=== PATIENT | male | born 1945 | race Caucasian/White ===

== ENCOUNTER → 2021-03-03 | Outpatient (CLI) | payer OTHER ==
[~2021-03-03] MED LIST: AMLO-211 PO; LEVO125T5 PO
[2021-03-03 09:56] LABS: MICROSCOPIC NOT IND
[2021-03-03 09:58] LABS: BASOPHILS % (AUTO) 1 % (0-1); EOSINOPHILS % (AUTO) 2 % (1-7); LYMPHOCYTES % (AUTO) 30 % (22-44); MEAN CORPUSCULAR HEMOGLOBIN 35.8 pg (27.5-34.5); MEAN CORPUSCULAR HGB CONC 34.3 g/dL (33.2-36.2); MEAN PLATELET VOLUME 8.5 fL (7.4-10.4); MONOCYTES % (AUTO) 11 % (2-9); NEUTROPHILS % (AUTO) 57 % (42-75); PLATELET COUNT 243 x10^3/uL (130-400); RED BLOOD COUNT 4.56 x10^6/uL (4.38-5.82); RED CELL DISTRIBUTION WIDTH 14.3 % (9.4-14.8)
[2021-03-03 10:03] LABS: MD NO
[2021-03-03 10:07] LABS: ANION GAP 5 mmol/L (5-15); CALCIUM 9.1 mg/dL (8.5-10.1); CHLORIDE 106 mmol/L (98-107)
[2021-03-03 10:08] LABS: INTERNATIONAL NORMALIZED RATIO 0.98 (0.93-1.1); PROTHROMBIN TIME 10.5 Seconds (9.6-11.5)
== END | disposition home or self-care (01) ==
LOC: STAR 08:51
PROVIDERS: ATTEND Neurological Surgery
DX: Z01.818 Encounter for other preprocedural examination (principal); M51.36 Other intervertebral disc degeneration, lumbar region; Z20.822 Contact with and (suspected) exposure to COVID-19
CPT/HCPCS: 36415; 71046; 80048; 81003; 85025; 85610; 85730; 93005; U0003

== ENCOUNTER 2021-03-09 07:01 | Day surgery (SDC) | payer OTHER ==
[~2021-03-09] VITALS: Ht 182.9 cm; Wt 98.7 kg
[2021-03-09 07:33] VITALS: BP 160/95
[2021-03-09] MEDS ORDERED: LACTATED RINGERS 1,000 ML IV SCH (08:00)
[2021-03-09] MEDS ORDERED: CHLORHEXIDINE 15 ML UDC PO ONE (08:00)
[2021-03-09] MEDS ORDERED: FENTANYL PF 250 MCG/5ML ONE (10:11)
[2021-03-09] MEDS ORDERED: EPINEPHRINE 1 MG/ML, 1ML ONE (10:14)
[2021-03-09] MEDS ORDERED: BUPIVACAINE/PF 0.25% ONE (10:14)
[2021-03-09] MEDS ORDERED: FENTANYL PF 100 MCG/2ML ONE ×2 (10:14→12:51)
[2021-03-09] MEDS ORDERED: BACITRACIN 50,000 UNIT ONE (10:14)
[2021-03-09] MEDS ORDERED: BUPIVACAINE/PF 0.5% ONE (10:14)
[2021-03-09] MEDS ORDERED: methylPREDNISolone SOD SUCC 125 MG/2 ML ONE (10:14)
[2021-03-09] MEDS ORDERED: DEXAMETHASONE 4 MG/ML, 1ML ONE (12:23)
[2021-03-09] MEDS ORDERED: PROPOFOL 10 MG/ML, 20ML ONE (12:23)
[2021-03-09] MEDS ORDERED: GLYCOPYRROLATE 0.2MG/1ML, 5ML ONE (12:23)
[2021-03-09] MEDS ORDERED: ONDANSETRON 2MG/ML, 2ML ONE (12:23)
[2021-03-09] MEDS ORDERED: CEFAZOLIN 1,000 MG ONE (12:23)
[2021-03-09] MEDS ORDERED: ROCURONIUM 10MG/ML,5ML ONE (12:23)
[2021-03-09] MEDS ORDERED: SUCCINYLCHOLINE 20 MG/ML, 10ML ONE (12:23)
[2021-03-09] MEDS ORDERED: NEOSTIGMINE 1 MG/ML, 10ML ONE (12:23)
[2021-03-09] MEDS ORDERED: ACETAMINOPHEN 650 MG/20.3 ML UDC ONE (12:51)
[2021-03-09] MEDS ORDERED: OXYcodone 5 MG/5 ML ORAL.SOL UDC ONE (12:51)
[2021-03-09] MEDS ORDERED: ALBUTEROL SULFATE 2.5 MG/3 ML NPPB PRN (13:00)
[2021-03-09] MEDS ORDERED: hydrALAzine 20 MG/ML, 1ML IV PRN (13:00)
[2021-03-09] MEDS ORDERED: DIAZEPAM 5 MG/ML, 2ML IVPush PRN (13:00)
[2021-03-09] MEDS ORDERED: ACETAMINOPHEN 325 MG TABLET PO PRN (13:00)
[2021-03-09] MEDS ORDERED: LABETALOL 5MG/ML, 20ML IV PRN (13:00)
[2021-03-09] MEDS ORDERED: PROMETHAZINE 25 MG/ML, 1ML IV PRN (13:00)
[2021-03-09] MEDS ORDERED: KETOROLAC 30 MG/1 ML IV PRN (13:00)
[2021-03-09] MEDS ORDERED: HYDROmorphone 2 MG/ML, 1ML IVPush PRN (13:00)
[2021-03-09] MEDS ORDERED: FENTANYL PF 100 MCG/2ML IV PRN (13:00)
[2021-03-09] MEDS ORDERED: OXYcodone 5 MG/5 ML ORAL.SOL UDC PO PRN (13:00)
[2021-03-09] MEDS ORDERED: MEPERIDINE/PF 25MG/0.5ML IVPush PRN (13:00)
== END 2021-03-09 15:40 | disposition home or self-care (01) ==
LOC: OUT 07:01
PROVIDERS: ATTEND Neurological Surgery
DX: M51.16 Intervertebral disc disorders with radiculopathy, lumbar region (principal); M51.36 Other intervertebral disc degeneration, lumbar region; M48.061 Spinal stenosis, lumbar region without neurogenic claudication; Z79.82 Long term (current) use of aspirin; Z79.899 Other long term (current) drug therapy; Z87.891 Personal history of nicotine dependence; Z72.89 Other problems related to lifestyle; Z98.890 Other specified postprocedural states
CPT/HCPCS: 63030; 63056; 72100; J0171; J0330; J0690; J1100; J2405; J2704; J2930; J3010; J7120; J2710